=== PATIENT | male | born 1965 | race Caucasian/White ===

== ENCOUNTER 2020-04-13 07:52 | Inpatient (IN) | payer OTHER ==
[~2020-04-13] VITALS: Ht 177.8 cm; Wt 79.4 kg
[2020-04-13 07:55] VITALS: Ht 177.8 cm; Wt 79.4 kg
--- NOTE | 2020-04-13 09:23 | NUR ---
PT BROUGHT IN BY EMS WITH C/O ACCIDENT ON SKATEBOARD. PT WAS RISING HIS SKATEBOARD WHEN HE SLIPPED AND HIS LEFT FOOT MOVED WITH THE SKATEBOARD, HIS R FOOT STAYED STATIONARY, AND RESULT IN A SPLIT. PT HEARD A POP, AND FELT IMMENSE PAIN. PT WAS TREATED WITH 27MG OF KETAMINE IN THE FIELD. PT WITH GOOD PULSES OF THE LEFT LEG. PT IS AOX4, RESP E/U. SKIN IS WARM AND DRY.
[2020-04-13 09:41] LABS: CARBON DIOXIDE 23.6 mmol/L (21-32); CHLORIDE SERUM 105 mmol/L (98-107); GFR1 > 60 mL/min; GLUCOSE SERUM 121 mg/dL (74-106); SODIUM SERUM 139 mmol/L (136-145)
[2020-04-13 09:42] LABS: BASOPHIL % 0.2 % (0-2); PLATELET COUNT 328 x10^3mcL (130-400); RED CELL DISTRIBUTION WIDTH 13.4 % (11.5-14.5)
[2020-04-13 09:46] LABS: ALBUMIN 3.5 g/dL (3.4-5.0); ALKALINE PHOSPHATASE 47 U/L (46-116); ALT/SGPT 23 U/L (16-63); AST/SGOT 15 U/L (15-37); BILIRUBIN TOTAL 0.3 mg/dL (0.20-1.00); TOTAL PROTEIN, SERUM 6.7 g/dL (6.4-8.2)
--- NOTE | 2020-04-13 11:09 | NUR ---
NPO SINCE 6AM TODAY. PT HAD A PROTEIN SHAKE AND BANANA.
--- NOTE | 2020-04-13 12:22 | NUR ---
PT WAS PROVIDED COMFORT MEASURES AND REASSESSED WITH PAIN . PT IS SATISFIED WITH PAIN MANAGEMENT. PT IS AOX4, RESP E/U. SKIN IS WARM AND DRY.
--- NOTE | 2020-04-13 13:26 | NUR ---
ASSUMING CARE OF PT. PT IS A&O X3, BREATHING EVEN AND UNLABORED, NO DISTRESS, ASSESS L LEG, SKIN COLOR IS NORMAL, PEDAL PULSE PRESENT, PMS IS INTACT, COMPLAINING OF PAIN DURING MOVEMENT, CAP REFILL BRISK, WAITING FOR ADMITTANCE, WILL CONTINUE TO MONITOR.
--- NOTE | 2020-04-13 13:26 | NUR ---
ASSUMED CARE OF PT
--- NOTE | 2020-04-13 14:19 | NUR ---
PT IS A&O X3, BREATHING IS EVEN AND UNLABORED, NO DISTRESS, L LEG SKIN ASSESSMENT IS NORMAL, PEDAL PULSES PRESENT, CAP REFILL BRISK, PAIN LEVEL IS 5 BUT COMFORTABLE TO PT.
--- NOTE | 2020-04-13 15:26 | NUR ---
PT IS &O X4, BREATHING IS EQUAL, EVEN, AND UNLABORED, NO DISTRESS. L LEG PEDAL PULSES PRESENT, CAP REFILL BRISK, SKIN ASSESSMENT NORMAL. PT COMPLAINED OF 10/10 PAIN TO L UPPER LEG. PT MEDICATED ORDERED. CONTINUE TO MONITOR.
--- NOTE | 2020-04-13 16:24 | NUR ---
PT IS A&O X4, BREATHING IS EVEN AND UNLABORED, NO DISTRESS, PAIN IS REDUCED TO 5/10. PT L LEG HAS PEDAL PULSE PRESENT, CAP REFILL IS BRISK, AND SKIN ASSESSMENT IS NORMAL. WILL CONTINUE TO MONITOR.
--- NOTE | 2020-04-13 17:45 | NUR ---
PT IS A&O X4, BREATHING IS EVEN AND UNLABORED, NO DISTRESS. PT L LEG HAS PEDAL PULSE, CAP REFILL IS BRISK, AND SKIN ASSESSMENT IS NORMAL. WILL CONTINUE TO MONITOR.
--- NOTE | 2020-04-13 18:12 | NUR ---
CHECK LIST COMPLETED. CLOTHING REMOVED AND PLACED IN BAG WITH CELL PHONE. BAG PLACED ON BED AND TAKEN WITH PT. TO SURGERY. PT CALLED AND NOTIFIED THAT PT WAS TAKEN TO SURGERY.
--- NOTE | 2020-04-13 22:41 | NUR ---
RECEIVED PT VIA GURNEY FROM E/D, ACCOMPANIED BY TRANSPORTER. PT A/A/O X 4, CALM, COOPERATIVE TO CARE. HR 90, DENIES CHEST PAIN OR DISCOMFORT AT THIS TIME. NO ACUTE RESPIRATORY DISTRESS NOTED. GENERALIZED WEAKNESS, AMBULATORY @ BASELINE, S/P R HIP ORIF W/ INTRAMEDULLARY NAIL (COVERED W/ D/D, UNABLE TO TAKE PHOTOS AT THIS TIME), C/O INTERMITTENT SHARP/DULL 6/10 PAIN THAT IS EXACERBATED BY MOVEMENT, RELIEVED BY RESTING AND PAIN MEDICATION, NOTED SHORTENING OF R LEG + INNER ROTATION, FALL RISK PROTOCOL IN PLACE. IV SITE TO 20, CDI. ORIENTED PT TO ROOM, BED CONTROLS, CALL LIGHT SYSTEM. SIDE RAILS UP X 2, BED IN LOW POSITION. WILL ENDORSE TO TASH GRIFFIN.
--- NOTE | 2020-04-13 23:08 | NUR ---
RECEIVED REPORT FROM OR SPOKE TO TASH BANUELOS. RECEIVED PATIENT VIA BED ACCOMPANIED BY STAFF.PATIENT AWAKE,ALERT,AND ORIENTED.RESPIRATION EVEN AND UNLABORED,NO RESPIRATORY DISTRESS.S/P RIGHT HIP SURGICAL SITE DRESSING INTACT,NO BLEEDING, NO DRAINING.ADMISSION ORIENTATION DONE WITH PATTIENT AND VERBALIZED UNDERSTANDING.CALL LIGHT WITHIN REACH.
[2020-04-14 00:18] VITALS: BP 121/78
[2020-04-14 05:41] VITALS: BP 118/72
[2020-04-14 06:17] LABS: PLATELET COUNT 283 x10^3mcL (130-400); RED CELL DISTRIBUTION WIDTH 13.6 % (11.5-14.5)
[2020-04-14 06:18] LABS: BASOPHIL % 0 % (0-2)
[2020-04-14 06:53] LABS: CALCIUM 8.1 mg/dL (8.5-10.1); CARBON DIOXIDE 22.4 mmol/L (21-32); CHLORIDE SERUM 106 mmol/L (98-107); GFR1 > 60 mL/min; GLUCOSE SERUM 153 mg/dL (74-106); POTASSIUM SERUM 4.1 mmol/L (3.5-5.1); SODIUM SERUM 139 mmol/L (136-145)
--- NOTE | 2020-04-14 07:40 | NUR ---
RECEIVED PT FROM TRAFFIC RATE CLERK. ASSESSED AND DOCUMENTED. STABLE. DENIES PAIN THIS TIME. SAFTEY PRECAUTIONS ARE IN PLACE. WILL MONITOR.
--- NOTE | 2020-04-14 08:52 | NUR ---
PT C/O RLE PAIN, 03/26. ADMINISTERED MS IV 4MG ORDERED. WILL MONITOR. V/S STABLE.
--- NOTE | 2020-04-14 09:30 | NUR ---
PT IS SLEEPING THIS TIME. NO SIGNS OF PAIN.
[2020-04-14 09:41] VITALS: BP 133/91
--- NOTE | 2020-04-14 12:30 | NUR ---
PT RESTING IN BED COMFORTABLY. STABLE.
[2020-04-14 13:48] VITALS: BP 120/74
--- NOTE | 2020-04-14 13:54 | NUR ---
PT C/O RLE PAIN, 01/24, SAYJESS SAID TO GIVE PERCOCET PO, INFORMED HIM ABOUT PT HAVING TEMP 100.5. PERCOCET PO AND TYLENOL PO GIVEN. WILL MONITOR.
--- NOTE | 2020-04-14 14:54 | NUR ---
PT IS SLEEPING, NO SIGNS OF PAIN. TEMP IS 98.4 THIS TIME. STABLE.
--- NOTE | 2020-04-14 17:06 | NUR ---
P.T. NOTES P.T. EVAL COMPLETED; REFER TO EVAL FOR DETAILS; WILL BENEFIT W/ P.T. POST ACUTE STAY.
[2020-04-14 18:19] VITALS: BP 122/77
--- NOTE | 2020-04-14 19:05 | NUR ---
PT REMAINS STABLE. DENIES ANY PAIN. GAVE REPORT TO [facility] NURSE.
--- NOTE | 2020-04-14 20:49 | NUR ---
RECEIVED PT LYING IN BED AWAKE ALERT AND ORIENTED X4. MOVES ALL EXT. WELL.RT HIP DRESSING DRY AND INTACT. LUNGS CLEAR BILAT.ABDOMEN SOFT W/ ACTIVE BOWEL SOUND.PULSES PALPABLE.COMPLAIAN PF PAIN AT OERATIVE SITE. PERCOCET 1 TAB PO GIVEN W/ EFFECT. RESTING WELL AFTER. NO ACUTE DISTRESS NOTED.
[2020-04-15 04:58] VITALS: BP 124/69
--- NOTE | 2020-04-15 06:53 | NUR ---
SLEPT AT INTERVALS. VITAL SIGNS STABLE. HAD PAIN X3. RT HIP DRESSING DRY INTEACT. VOIDING WELL.IV INFUSING WELL. RESTING WELL AT THIS TIME.
[2020-04-15 06:56] LABS: BASOPHIL % 0.1 % (0-2); PLATELET COUNT 274 x10^3mcL (130-400); RED CELL DISTRIBUTION WIDTH 13.7 % (11.5-14.5)
[2020-04-15 07:16] LABS: CALCIUM 8.4 mg/dL (8.5-10.1); CARBON DIOXIDE 25.4 mmol/L (21-32); CHLORIDE SERUM 103 mmol/L (98-107); CREATININE SERUM 0.8 mg/dL (0.7-1.3); GFR1 > 60 mL/min; GLUCOSE SERUM 105 mg/dL (74-106); POTASSIUM SERUM 3.7 mmol/L (3.5-5.1); SODIUM SERUM 139 mmol/L (136-145)
--- NOTE | 2020-04-15 07:35 | NUR ---
RECEIVED PT FROM BULB SORTER. ASSESSED AND DOCUMENTED. DENIES PAIN THIS TIME, PT IS SLEEPING THIS TIME. DRESSING TO RT THIGH CDI. SAFTEY PRECAUTIONS ARE IN PLACE. WILL MONITOR.
[2020-04-15 08:45] VITALS: BP 115/74
--- NOTE | 2020-04-15 11:29 | NUR ---
PT WAS C/O RLE PAIN,12/24. ADMINISTERED NORCO PO ORDERED AT 1029 AND REASSESSED NOW, PT IS SLEEPING. NO SIGNS OF PAIN.
[2020-04-15] MEDS ORDERED: PER5 PO (12:07)
[2020-04-15] MEDS ORDERED: ECOTRIN325 M1 PO (12:11)
[2020-04-15] MEDS ORDERED: ACID REDUCER20 MG PO (12:11)
[2020-04-15] MEDS ORDERED: D-10001 TAB PO (12:13)
[2020-04-15 12:30] VITALS: BP 112/71
--- NOTE | 2020-04-15 13:00 | NUR ---
IS AWARE ABOUT PT IS HAVING TEMP 100.6F. TYLENOL PO WAS GIVEN. PT IS SATBLE.
--- NOTE | 2020-04-15 13:51 | NUR ---
PT TEMP 98.6, STABLE.
--- NOTE | 2020-04-15 14:40 | NUR ---
PT C/O RLE PAIN, 5/10. ADMINISTERED PERCOCET PO ORDERED. WILL MONITOR.
--- NOTE | 2020-04-15 15:40 | NUR ---
PT IS SLEEPING, DENIES ANY PAIN. STABLE.
[2020-04-15 16:05] VITALS: BP 120/74
--- NOTE | 2020-04-15 17:30 | NUR ---
PT SAID HE IS NOT COMFORTABLE TO GO HOME, STILL HAVING PAIN, DIFFICULT TO GET OUT OF BED, NEED MORE P.T. PT REQUESTING CAN HE DISCHARGE TOMORROW AFTER ONE MORE P.T. PAGED DOCTOR TO INFORM. CHARGE NURSE AWARE.
--- NOTE | 2020-04-15 18:10 | NUR ---
CALLED, INFORMED HIM ABOUT PT REQUESTING TO STAY ONE MORE DAY FOR P.T AND DC TMORROW. SAID DC DISCHARGE ORDER FOR TODAY AND THEY WILL DISCHARGE HIM TOMORROW AFTER P.T.
--- NOTE | 2020-04-15 19:02 | NUR ---
PT REMAINS STABLE. DENIES ANY PAIN. GAVE REPORT TO ANALYST NURSE.
--- NOTE | 2020-04-15 19:30 | NUR ---
RECEIVED PT FROM DAY SHIFT NURSE, PT IS IN BED AWAKE AND ALERT A&O X4. C/O OF R HIP PAIN. PAIN MEDICATION ADMINISTERED, EFFECTIVE. PALPABLE PULSES, NO EDEMA NOTED. BREATHING IS EVEN AND UL ON RA, LUNG SOUNDS CTA. NO SOB OR ACUTE RESPIRATORY DISTRESS NOTED. BOWEL SOUNDS ACTIVE X4, ABD IS SOFT AND ROUND, NO C/O PAIN TO PALPATION. INCISION TO R HIP S/P SURGERY NOTED, DRESSING CDI. IV TO LH, CDI AND PATENT. BED AT LOWEST POSITION. ABLE TO MAKE NEEDS KNOWN, CALL LIGHT IS W/IN REACH. WILL CONTINUE TO MONITOR.
[2020-04-15 20:30] VITALS: BP 131/75
--- NOTE | 2020-04-16 00:36 | NUR ---
PT IS RESTING IN BED AWAKE AND ALERT. C/O PAIN TO R HIP. MEDICATION ADMINISTERED PER ORDERS. REMAINS IN STABLE CONDITION AT THIS TIME. WILL CONTINUE TO MONITOR.
[2020-04-16 05:31] VITALS: BP 124/79
--- NOTE | 2020-04-16 06:00 | NUR ---
PT IS RESTING IN BED AWAKE AND ALERT. NO C/O PAIN OR DISCOMFORT AT THIS TIME. PER PT, PAIN MEDICATION HAS BEEN EFFECTIVE. NO SIGIFICANT CHANGES NOTED. REMAINS IN STABLE CONDITION. WILL ENDORSE TO DAY SHIFT NURSE
[2020-04-16 07:23] LABS: BASOPHIL % 0.4 % (0-2); PLATELET COUNT 282 x10^3mcL (130-400); RED CELL DISTRIBUTION WIDTH 13.7 % (11.5-14.5)
--- NOTE | 2020-04-16 07:30 | NUR ---
RECEIVED PATIENT IN BED, AWAKE ALERT AND ORIENTED. RESP EVEN AND UNLABORED, LUNGS CLEAR ON ROOM AIR. PATIENT HAS I.S. AT BEDSIDE AND PATIENT INSTRUCTED TO USE CALL FOR ASSIST. HL LEFT HAND FLUSHED WELL. DRESSING OVER SURGICAL SITE RIGHT HIP C/D/I. P.T. TO ASSIST PATIENT TODAY.NO ACUTE DISTRESS NOTED.
[2020-04-16 07:41] LABS: CALCIUM 8.8 mg/dL (8.5-10.1); CARBON DIOXIDE 26.5 mmol/L (21-32); CHLORIDE SERUM 103 mmol/L (98-107); CREATININE SERUM 0.8 mg/dL (0.7-1.3); GFR1 > 60 mL/min; GLUCOSE SERUM 102 mg/dL (74-106); POTASSIUM SERUM 4.3 mmol/L (3.5-5.1); SODIUM SERUM 139 mmol/L (136-145)
[2020-04-16 08:01] VITALS: BP 124/76
--- NOTE | 2020-04-16 12:08 | NUR ---
PATIENT IS IN BED, PER PATIENT HIS PAIN HAS SUBSIDED. NO ACLUTE DISTRESS NOTED. WILL CONTINUE TO MONITOR.
[2020-04-16 12:27] VITALS: BP 124/76
--- NOTE | 2020-04-16 13:49 | NUR ---
PATIENT'S PLAN OF CARE WAS DISCUSSED AND REVIEWED WITH BRICK DROPPER:MY LOREDO. I HAVE REVIEWED THE DATA COLLECTION BY BRICK DROPPER (NAME):MY LOREDO. ENTERED ON (DATE/TIME): I CONCUR WITH THE DATA AND ANY EXCEPTIONS OR COMMENTS ARE LISTED BELOW:
[2020-04-16 16:49] VITALS: BP 132/77
--- NOTE | 2020-04-16 18:02 | NUR ---
PATIENT READY FOR D/C HOME AWAITING WALKER TO BE DELIVERED TO ROOM FROM [facility]. ADOLPH TRUJILLO'Toni. PRESCRIPTIONS AND DISCHARGE INSTRUCTIONS GIVEN. EDUCATION PROVIDED. PATIENT MEDICATED WITH PERCOCET AT 1715 FOR RIGHT HIP PAIN 7/10 ON THE PAIN SCALE. PATIENT IS SUBSIDING PER PATIENT. PATIENT INFORMED THAT HE WILL HAVE HAVE HOME HEALTH WITH [facility] AND PHONE NUMBER PROVIDED. CONDITION APPEARS STABLE.
--- NOTE | 2020-04-16 18:31 | NUR ---
PATIENT LEAVING HOSPITAL WITHOUT HIS WALKER BEING DELIVERED. PER PATIENT HE CAN'T WAIT ANY LONGER HIS RIDE IS HERE AND DOES NOT DRIVE IN THE DARK. PER PATIENT HE WILL USE HIS MOM'S WALKER TO GET INTO THE HOUSE.
== END 2020-04-16 18:45 | disposition home health service (06) | DRG 482 ==
LOC: ED 07:52 → MU 09:02 → EDBEDREQ 09:40 → MU 18:13
PROVIDERS: Orthopaedic Surgery; Student in an Organized Health Care Education/Training Program; ADMIT Internal Medicine; ATTEND Internal Medicine
PROC: 0QS606Z Reposition Right Upper Femur with Intramedullary Internal Fixation Device, Open Approach (ICD-10-PCS; principal; 2020-04-13 18:00)
DX: S72.141A Displaced intertrochanteric fracture of right femur, initial encounter for closed fracture (principal); G89.29 Other chronic pain; M54.9 Dorsalgia, unspecified; G62.9 Polyneuropathy, unspecified; M17.12 Unilateral primary osteoarthritis, left knee; W01.0XXA Fall on same level from slipping, tripping and stumbling without subsequent striking against object, initial encounter; Y93.51 Activity, roller skating (inline) and skateboarding; Y92.89 Other specified places as the place of occurrence of the external cause; Z88.0 Allergy status to penicillin; Z98.1 Arthrodesis status; Y99.8 Other external cause status
CPT/HCPCS: 97116-GP; 97530-GP; G0378; J0690; J1170; J1650; J1885; J2175; J2270; J2405; J3010; J3480; J3490; J7030; J7050; Q0092